=== PATIENT | female | born 1990 | race Caucasian/White ===

== ENCOUNTER → 2016-12-03 12:32 | Emergency (ER) | payer SELFPAY ==
[~2016-12-03 12:32] MED LIST: NO HOME MEDS; POLYTRIM EYE DR10 M1 LEFT EYE
== END ==
LOC: EDMED 12:32
PROC: 08CPXZZ Extirpation of Matter from Left Upper Eyelid, External Approach (ICD-10-PCS; principal; 2016-12-03)
DX: T15.82XA Foreign body in other and multiple parts of external eye, left eye, initial encounter (principal)